=== PATIENT | male | born 1985 | race African-American/Black ===

== ENCOUNTER 2022-07-13 15:34 | Emergency (ER) | payer OTHER ==
[2022-07-13 15:51] VITALS: BP 124/75; PULSE 62; RESP 18; TEMP 98.8; BMI 29.8
[2022-07-13] MEDS ORDERED: KETOROLAC TROMETHAMINE 30 MG/1 ML VIAL IM ONE (16:26)
[2022-07-13] MEDS ORDERED: KETOROLAC TROMETHAMINE 30 MG/1 ML VIAL ONE (16:36)
== END 2022-07-13 17:01 | disposition home or self-care (01) ==
LOC: JERFT 15:34
PROC: 3E0233Z Introduction of Anti-inflammatory into Muscle, Percutaneous Approach (ICD-10-PCS; principal; 2022-07-13)
DX: S82.892S Other fracture of left lower leg, sequela (principal)
CPT/HCPCS: 73610-TC-LT-FY; 73630-TC-LT; 99284-25